=== PATIENT | female | born 1995 | race Caucasian/White ===

== ENCOUNTER 2018-12-31 20:05 | Inpatient (IN) | payer MEDICAID ==
[~2018-12-31] VITALS: Ht 157.5 cm; Wt 76.2 kg
[2018-12-31 21:16] LABS: HEMOGLOBIN 12.6 g/dL (12-16); MCH 30.4 pg (26.0-34.0); MCHC 34.1 g/dL (31.0-37.0); MCV 89.2 fL (80.0-100.0); MEAN PLATELET VOLUME 10.5 fL (7.4-10.4); RBC 4.15 10x6/uL (4.00-5.40); RDW 14.3 % (11.5-14.5); WBC 11.6 10x3/uL (4.8-10.8)
[2018-12-31 21:40] LABS: APPEARANCE CLEAR (CLEAR); BILIRUBIN NEGATIVE (NEGATIVE); COLOR YELLOW (YELLOW); GLUCOSE NEGATIVE (NEGATIVE); KETONE NEGATIVE (NEGATIVE); NITRITE NEGATIVE (NEGATIVE); PROTEIN NEGATIVE (NEGATIVE); UROBILINOGEN NORMAL (NORMAL)
[2018-12-31 21:41] LABS: BACTERIA MODERATE /hpf (NONE SEEN); WHITE CELLS - URINE 0-5 /hpf (0-5)
[2018-12-31 21:52] VITALS: BP 124/73; Ht 157.5 cm; Wt 76.2 kg
--- NOTE | 2019-01-01 04:49 | NUR ---
LACTATED RINGERS 1000ML@125ML/HR, SEE EMAR
[2019-01-01 16:00] VITALS: BP 126/77
--- NOTE | 2019-01-01 16:03 | OP ---
PATIENT NAME: ASHWINI REYES MEDICAL RECORD: [id number] LOCATION:[id number] ADMISSION DATE:12/31/18 SURGEON: CALE CAO MD DATE OF OPERATION: 01/01/2019 PREDELIVERY DIAGNOSES: 1. at term (40 weeks). 2. Nonreassuring tracing. POSTDELIVERY DIAGNOSES: 1. Mother delivered at 40 weeks. 2. Nonreassuring tracing. PROCEDURE: Vacuum-assisted vaginal delivery. ATTENDING: Cale Cao MD ANESTHETIC: Local anesthetic at the time of vaginal repairs. FINDINGS: Viable male infant, RICK presentation, Apgars were 8 and 9, weight 7 pounds 13 ounces. Deep variables with slow return to baseline, necessitating a vacuum-assisted vaginal delivery. was delivered over 1 expulsive effort with the use of vacuum. A second-degree laceration is encountered on the vaginal sidewall as well as the perineal body, both repaired with 3-0 chromic. Placenta is spontaneous and intact. ESTIMATED BLOOD LOSS: 400 cc. DISPOSITION: Mother and recovered in the room. TRANSINT:[id number] Voice Confirmation ID: [id number] DOCUMENT ID: [id number] CALE CAO MD at 1603 CC: [id number] DICTATION DATE: 01/01/19 1258 GAS FITTER HELPER: 01/01/19 1337 ADM IN [place] [id number] [place] [address]
--- NOTE | 2019-01-01 18:00 | NUR ---
CALLED TO ROOM, PT IN BATHROOM AND EXPRESS CONCERNS ABOUT VAGINAL/LABIA SWELLING. MINIMAL SWELLING NOTED AND REASSURED PT WAS EXPECTED AFTER ASSIST DELIVERY. NEW ICE PACK PROVIDED AND PT ENCOURAGED TO KEEP ICE TO AREA OVER NIGHT. TORDAL GIVEN FOR CRAMPING THAT SHE RATES AT 4-5/10. IN NURSERY. PT VISITING WITH FAMILY, LARGE ICE WATER REQUESTED. SIDE RAILS UP X 2 WITH CALL LIGHT IN REACH.
--- NOTE | 2019-01-01 19:30 | NUR ---
PATIENT SITTING UP IN BED. FAMILY AT BEDSIDE. ASSESSMENT DONE AT THIS TIME. RESPIRATIONS AT EASE. LUNG SOUNDS CLEAR IN ALL WITT. HEART REGULAR RATE AND RHYTHM. ABDOMEN SOFT AND NONTENDER. BOWEL SOUNDS PRESENT IN ALL QUADRANTS. FUNDUS FIRM AND 2 BELOW UMBILICUS. LOCHIA RUBRA WITH SMALL AMOUNT NOTED TO PERIPAD. NO EDEMA NOTED TO BLE. PATIENT DENIES PAIN AT THIS TIME. BED IN LOWEST POSITION, SIDE RAILS UP X 2, C/L AND WATER WITHIN REACH. PATIENT DENIES ANY FURTHER NEEDS AT THIS TIME.
--- NOTE | 2019-01-01 21:00 | NUR ---
PATIENT LYING QUIETLY IN BED WITH EYES CLOSED. RESPIRATIONS AT EASE. NO SIGNS OF DISTRESS NOTED. BED IN LOWEST POSITION, SIDE RAILS UP X 2, C/L AND WATER WITHIN REACH.
--- NOTE | 2019-01-01 21:56 | NUR ---
PATIENT SITTING UP IN BED INFANT. SCHEDULED TORADOL 10 MG ADMINISTERED PO. PATIENT DENIES ANY FURTHER NEEDS. BED IN LOWEST POSITION, SIDE RAILS UP X 2, C/L AND WATER WITHIN REACH.
[2019-01-01 22:06] VITALS: BP 114/57
--- NOTE | 2019-01-02 | NUR ---
PATIENT SITTING UP IN BED. IN CRIB AT BEDSIDE. PATIENT DENIES PAIN OR ANY NEEDS. BED IN LOWEST POSITION, SIDE RAILS UP X 2, C/L AND WATER WITHIN REACH.
--- NOTE | 2019-01-02 02:00 | NUR ---
PATIENT LYING IN BED WITH EYES CLOSED. EASILY AROUSED. PATIENT DENIES ANY PAIN OR NEEDS. BED IN LOWEST POSITION, SIDE RAILS UP X 2, C/L AND WATER WITHIN REACH.
--- NOTE | 2019-01-02 04:01 | NUR ---
PATIENT LYING IN BED WITH EYES CLOSED. EASILY AROUSED. SCHEDULED TORADOL 10 MG ADMINISTERED PO. VITAL SIGNS DONE. PATIENT DENIES PAIN OR ANY OTHER NEEDS. BED IN LOWEST POSITION, SIDE RAILS UP X 2, C/L AND WATER WITHIN REACH.
[2019-01-02 04:03] VITALS: BP 112/62
--- NOTE | 2019-01-02 06:00 | NUR ---
PATIENT LYING IN BED WITH EYES CLOSED. RESPIRATIONS AT EASE. NO SIGNS OF DISTRESS NOTED. BED IN LOWEST POSITION, SIDE RAILS UP X 2, C/L AND WATER WITHIN REACH.
[2019-01-02 06:56] LABS: HEMATOCRIT 29.4 % (36.0-48.0); HEMOGLOBIN 9.9 g/dL (12-16); MCH 30.1 pg (26.0-34.0); MCHC 33.7 g/dL (31.0-37.0); MCV 89.4 fL (80.0-100.0); MEAN PLATELET VOLUME 10.2 fL (7.4-10.4); RBC 3.29 10x6/uL (4.00-5.40); RDW 14.5 % (11.5-14.5); WBC 12.1 10x3/uL (4.8-10.8)
--- NOTE | 2019-01-02 07:15 | NUR ---
DR. AGUILAR ON UNIT, ROUNDS MADE.
--- NOTE | 2019-01-02 07:45 | NUR ---
TO PT'S ROOM, PT IS SLEEPING, WITH ALL LIGHTS OUT, SNORING SOFTLY. PT NOT DISTURBED AT THIS TIME.
[2019-01-02 09:00] VITALS: BP 98/60
--- NOTE | 2019-01-02 09:00 | NUR ---
AM ASSESSMENT COMPLETED, SEE FLOWSHEET. PT DENIES HEAVY BLEEDING OR PASSING CLOTS. PT AMBULATORY IN ROOM. SIG OTHER AT BEDSIDE. PT DENIES NEEDING PAIN MEDICATION. WATER SERVED TO PT AT HER REQUEST. SR UP X2, CALL LIGHT AND PHONE WITHIN REACH.
--- NOTE | 2019-01-02 09:19 | NUR ---
Lucero Miles 01/02/19 S: Patient standing up in room next to crib, sleeping, FOB at bedside. Patient states she understands very little Omani. 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 A nurse helped her last night with latching baby and she thinks is going ok. She denies questions or concerns, pain with latching , or difficulty latching . Denies help with latching now for feeding? Please ask for help as needed from nursery nurse. O: Patient sitting on bed in room, at bedside, infant in crib sleeping. Contact language service association at for translation. Spoke with agent Clayton who translated conversation. Asked how are things going with , any problems or concerns? Asked reason for providing breastmilk only at night. Validated patient preferred feeding methods. Explained supply and demand and the importance of latching baby to help establish her milk supply. Patient was educated that takes time, practice, and patience in the beginning. Explained breastmilk composition, feeding cues, benefits of skin to skin. Asked if she would like help latching now for feeding? Encouraged to ask for help as needed with latching or any questions or concerns. A: Patient doesn't speak O[place]i. Contact [employer] at for assistance with translations. Patient prefers to provide infant formula in the day and breastmilk at night due to her returning to work soon. P: Continue to promote during hospital visit. Catie Stout, CLC
--- NOTE | 2019-01-02 11:00 | NUR ---
PT AMBULATORY IN HALLWAY, REQUESTING PERIPADS. PERIPADS/PANTIES PROVIDED. PT DENIES ALL OTHER NEEDS AT THIS TIME. PT AMBULATORY BACK TO ROOM. SR UP X2, CALL LIGHT AND PHONE WITHIN REACH.
--- NOTE | 2019-01-02 11:30 | NUR ---
PT STATING BABY HAS BEEN DISCHARGED, AND PT REQUESTING TO GO HOME. PHONE CALL MADE TO DR. JEFF MD STATES HE WILL PLACE ORDERS IN ABOUT AN HOUR. PT INFORMED WAITING ON MD ORDER FOR DISCHARGE. PT AND SIG OTHER AGREES.
--- NOTE | 2019-01-02 12:15 | NUR ---
DIETARY SERVES LUNCH TRAY TO PT. PT DENIES ALL NEEDS AT THIS TIME. SRUP X2, CALL LIGHT AND PHONE WITHIN REACH. SIG OTHER AT BEDSIDE.
--- NOTE | 2019-01-02 14:30 | NUR ---
DISCHARGE INSTRUCTIONS EXPLAINED TO PT, PT STATES SHE IS ABLE TO READ MONGOLIAN, AND PT ABLE TO SPEAK UNDERSTANDABLE [place]ONG[place]IAN. COPIES OF DISCHARGE INSTRUCTIONS PROVIDED TO PT, ALONG WITH FOLLOW UP APPT CARD. SEE EMAR FOR ALL MEDS ADM BY THIS RN. PT THEN AMBULATORY OFF UNIT WITH SIG OTHER CARRYING IN [place], WITH PT'S AUNT HELPING WITH PERSONAL BELONGINGS. PT STATES SHE DOES NOT WANT TO BE TAKEN TO VEHICLE IN A WHEELCHAIR, SHE WANTS TO WALK OUT. PT IS IN STABLE CONDITION.
[2019-01-03 07:22] LABS: RAPID PLASMA REAGIN Non Reactive (Non Reactive)
== END 2019-01-02 14:45 | disposition home or self-care (01) | DRG 807 ==
LOC: D.LD 20:05
PROVIDERS: ADMIT Obstetrics & Gynecology; ATTEND Obstetrics & Gynecology
PROC: 10D07Z6 Extraction of Products of Conception, Vacuum, Via Natural or Artificial Opening (ICD-10-PCS; principal; 2019-01-01)
DX: O76 Abnormality in fetal heart rate and rhythm complicating labor and delivery (principal); Z37.0 Single live birth; Z3A.40 40 weeks gestation of pregnancy